=== PATIENT | male | born 1970 | race Caucasian/White ===

== ENCOUNTER 2022-07-03 21:57 | Observation (INO) ==
[2022-07-03] MEDS ORDERED: THIAMINE HCL 100 MG, FOLIC ACID 1 MG in SODIUM CHLORIDE 0.9% 1000ML 1,000 ML IV STA (23:05)
[2022-07-03] MEDS ORDERED: LIDOCAINE/EPINEPH/TETRACAINE 1 EA SYR EXT STA (23:05)
[2022-07-03] MEDS ORDERED: LORazepam 2 MG/1 ML VIAL IV STA (23:05)
[2022-07-03] MEDS ORDERED: CEROVITE ADV FORMULA TAB PO STA (23:05)
[2022-07-03 23:36] LABS: Basophils # (auto) 0.03 K/uL (0-0.2); Basophils % (auto) 0.6 %; Eosinophils # (auto) 0.03 K/uL (0-0.50); Eosinophils % (auto) 0.6 %; Hematocrit (blood only) 37.1 % (42.0-52.0); Hemoglobin 12.8 g/dl (14.0-18.0); Immature Granulocytes # (auto) 0.01 K/uL (0.01-0.20); Immature Granulocytes % (auto) 0.2 %; Lymphocytes # (auto) 1.39 K/uL (1.2-3.4); Lymphocytes % (auto) 28.2 %; Mean Corpuscular Hemoglobin 35.4 pg (25.0-34.0); Mean Corpuscular Hgb Conc 34.5 g/dL (32.0-36.0); Mean Corpuscular Volume 102.5 fL (80.0-100.0); Mean Platelet Volume 10.8 fL (9.4-12.4); Monocytes # (auto) 0.58 K/uL (0.11-0.59); Monocytes % (auto) 11.8 %; Neutrophils # (auto) 2.89 K/uL (1.40-6.50); Neutrophils % (auto) 58.6 %; Platelet Count 156 K/uL (130-400); RDW Coefficient of Variation 11.9 % (11.5-14.5); RDW Standard Deviation 44.7 fL (36.4-46.3); Red Blood Count 3.62 M/uL (4.70-6.10); White Blood Count 4.93 K/ul (4.8-10.8)
--- NOTE | 2022-07-03 23:41 | Emergency Department Note ---
Impression & Plan Generalized seizure, Complex laceration of forehead, Alcohol withdrawal, CHI (closed head injury) ED Provider Note CHIEF COMPLAINT: Seizure HISTORY OF PRESENT ILLNESS: This 51-year-old male patient with past medical history of alcohol dependency and seizure presents to the emergency department with complaints of your episode today at work. 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 Patient sustained a frontal head injury. EMS was called and the patient was brought to the hospital by ambulance. Patient states he drinks about 1 case of truly seltzers a day. He denies any hard alcohol or beer. He denies any recent illnesses. Patient states he has been prescribed a seizure medication which he does not take religiously. He follows at the [facility] and does not see a neurologist. He is unsure how many seizure episodes he has had in the past. REVIEW OF SYSTEMS: A review of systems was performed with positives and pertinent negatives listed in the history of present illness. 10 systems were reviewed and are otherwise negative. ALLERGIES: see below MEDICATIONS: see below PMH: see below SOCIAL HISTORY: see below DDx: Primary seizure disorder, electrolyte abnormality, medication effect, alcohol withdrawal, intracranial hemorrhage, intracranial mass, trauma amongst other PHYSICAL EXAM: Vital signs reviewed. General: Well-appearing 51-year-old male, in no significant distress. Boarded and collared. HEENT: No scleral icterus, PERRLA, neck supple. Stellate 5 cm left forehead laceration just above the eyebrow. No other trauma noted. Cardiovascular: Regular rate and rhythm, no extra sounds. Pulmonary: Clear to auscultation bilaterally, normal work of breathing. Abdomen: Soft, nontender, nondistended, positive bowel sounds. Musculoskeletal: Atraumatic, no peripheral edema. Neurologic: Patient awake alert and oriented x 3, speech is clear Skin: Warm, dry, no rash EMERGENCY DEPARTMENT COURSE/MDM: This patient was evaluated and appeared to be in no significant distress. Patient was anxious and urinary. He is noted to be hypertensive and slightly tachycardic. Patient was taken off of the backboard with the assistance of 2 nurses. IV access was obtained and laboratory work was drawn. Patient was placed on the warehouse incentive selector with seizure precautions maintained. After further discussion with the patient, he has had multiple sei zures in the past. He is not consistent with taking the Keppra that was previously prescribed. Patient does drink daily and I am suspicious for alcohol withdrawal seizures. Patient was hydrated with NSS, given 2 mg of ativan IV. IV Keppra was administered. CT imaging of the head is negative for acute intracranial abnl. Forehead laceration was approximated as below. Case was d/w the hospitalist service for further management. PROCEDURE:Location: forehead Total length: 5 cm Complexity: complex, stellate and facial Verbal consent was obtained after the risks and benefits were explained, including but not limited to bleeding, scarring, infection, pain, and bone/joint/nerve damage. At this time, the risks of the procedure are less than the risks of NOT performing the procedure. A time out was taken and the correct patient and site identified. The skin was prepped with betadine. The target area was anesthetized with LET gel. Copious irrigation was performed using saline. The skin was re-prepped with betadine and a sterile field set. The wound was explored for foreign bodies and none found. Examination revealed no injury to deep structures such as tendons, bone, or significant blood vessels. Debridement was not performed. The wound edges were approximated using 9, 6-0 simple interrupted nylon sutures. Hemostasis and excellent approximation was achieved. Antibacterial ointment and a sterile dressing applied. Detailed wound care instructions and signs and symptoms of infection reviewed with the patient. No complications and the patient tolerated the procedure well. MONITORING: An order for cardiac monitoring was placed and the patient is noted to be in a normal sinus rhythm 98 beats per minute. RADIOLOGY: CT scan of the head to my review is negative for acute intracranial abnormality. otherwise defer to radiology. EKG:to my interpretation reveals a NSR at 96 bpm, prolonged QT with QTc 490, T wave abnl in inferior and lateral leads. no PVC, no PAC. When compared to previous dated 05/31/22, T wave abnl in inferior and lateral leads are new. DISPOSITION: Admit Past Med/Surg History Medical History Abdominal pain C. difficile colitis Nausea vomiting and diarrhea Seizure Surgical History History of esophagogastroduodenoscopy (EGD) (03/2015) Social History Smoking Status: Never smoker Second Hand Exposure: No; Do You Dip or Chew Tobacco: No; Hx Alcohol Use: Yes Alcohol type: other Hx Substance Use: No Preferred Language: Albanian Communication Ability: Effective Water Server Required: No Beliefs That Will Affect Care: None Current Living Situation: Alone Feels Safe at Home: Yes Assistive Devices: None Allergies Allergies Allergy/AdvReac Type Severity Reaction Status Date / Time No Known Allergies Allergy Verified 01/11/20 03:19 Home Meds Previous Rx's Medication Instructions Recorded levetiracetam 500 mg tablet 500 mg PO BID #60 tabs 05/31/22 (Keppra) Results & Data (ED) Vital Signs Vital Signs - 24 hr 07/03/22 22:00 07/03/22 22:34 07/03/22 22:30 Temperature 36.9 C Temperature Source Oral Pulse Rate 103 H 98 H 101 H Pulse Rate from SpO2 Sensor 99 H Pulse Rhythm Regular Pulse Strength Normal Respiratory Rate 22 21 Respiratory Effort / Characteristics Non-Labored Spontaneous Respiratory Pattern Regular Blood Pressure 161/97 H 182/100 H Blood Pressure Mean 118 127 Blood Pressure Position Lying Pulse Oximetry 94 92 Oxygen Delivery Method Room Air Room Air Sepsis Recent Fever Within 48 Hours No Sepsis New/Unexplained Change in Mental Status N/A Sepsis Action Taken by Nursing No Action Required Home Medications Current Medication List: was personally reviewed by me Laboratory Data Attestation: I reviewed the patient's lab results. 07/03/22 22:19 07/03/22 22:19 Lab Results 07/03/22 07/03/22 07/04/22 Range/Units 22:19 22:19 01:13 WBC 4.93 (4.8-10.8) K/ul RBC 3.62 L (4.70-6.10) M/uL Hgb 12.8 L (14.0-18.0) g/dl Hct 37.1 L (42.0-52.0) % MCV 102.5 H (80.0-100.0) fL MCH 35.4 H (25.0-34.0) pg MCHC 34.5 (32.0-36.0) g/dL RDW Std Deviation 44.7 (36.4-46.3) fL RDW Coeff of Jan 11.9 (11.5-14.5) % Plt Count 156 (130-400) K/uL MPV 10.8 (9.4-12.4) fL Immature Gran % (Auto) 0.2 % Neut % (Auto) 58.6 % Lymph % (Auto) 28.2 % Whitfield % (Auto) 11.8 % Eos % (Auto) 0.6 % Baso % (Auto) 0.6 % Neut # (Auto) 2.89 (1.40-6.50) K/uL Lymph # (Auto) 1.39 (1.2-3.4) K/uL Whitfield # (Auto) 0.58 (0.11-0.59) K/uL Eos # (Auto) 0.03 (0-0.50) K/uL Baso # (Auto) 0.03 (0-0.2) K/uL Immature Gran # (Auto) 0.01 (0.01-0.20) K/uL Sodium 138 (136-145) mmol/L Potassium 3.3 L (3.5-5.1) mmol/L Chloride 96 L (98-107) mmol/L Carbon Dioxide 20 L (21-32) mmol/L Anion Gap 22 H (3-11) BUN 13 (6-23) mg/dl Creatinine 0.95 (0.6-1.4) mg/dl Est Cr Clr Drug Dosing 98.1 ml/min Est GFR ( Amer) 106.2 ml/min Est GFR (Non-Af Amer) 91.7 ml/min BUN/Creatinine Ratio 13.7 (10-20) Glucose 171 H (70-99(Fasting)) mg/dl Lactate (0.4-2.0) mmol/L Calcium 9.0 (8.6-10.3) mg/dl Magnesium 1.4 L (1.7-2.4) mg/dl Total Bilirubin 0.6 (0.2-1.0) mg/dl AST 35 (13-39) U/L ALT 31 (7-52) U/L Alkaline Phosphatase 38 (34-104) U/L Total Protein 7.7 (6.0-8.3) gm/dl Albumin 4.3 (3.4-5.0) gm/dl Globulin 3.4 (2.5-4.0) gm/dl Albumin/Globulin Ratio 1.3 (0.9-2) Urine Color Urine Appearance (Clear) Urine pH (4.5-7.5) Ur Specific Hudson (1.000-1.030) Urine Protein (Negative) Urine Glucose (UA) (Negative) Urine Ketones (Negative) Urine Blood (Negative) Urine Nitrite (Negative) Urine Bilirubin (Negative) Urine Urobilinogen (Negative) Ur Leukocyte Esterase (Negative) Urine WBC (Auto) (0-5) /hpf Urine RBC (Auto) (0-4) /hpf U Hyaline Cast (Auto) (0-5) /lpf U Epithel Cells (Auto) (0-5) /lpf Urine Bacteria (Auto) (Negative) Urine Opiates Screen (Neg) Ur Methadone, Qual (Neg) Urine Barbiturates (Neg) Ur Phencyclidine (PCP) (Neg) U Amphetamin/Meth Scrn (Neg) MDMA (Ecstasy) Screen (Neg) U Benzodiazepines Scrn (Neg) Ur Cocaine Metabolite (Neg) U Marijuana (THC) Screen (Neg) Ethyl Alcohol mg/dL < 10.0 (<10.0) mg/dl SARS-CoV-2, RNA, NAAT (NEGATIVE) 07/04/22 07/04/22 07/04/22 Range/Units 01:13 01:58 01:58 WBC (4.8-10.8) K/ul RBC (4.70-6.10) M/uL Hgb (14.0-18.0) g/dl Hct (42.0-52.0) % MCV (80.0-100.0) fL MCH (25.0-34.0) pg MCHC (32.0-36.0) g/dL RDW Std Deviation (36.4-46.3) fL RDW Coeff of Jan (11.5-14.5) % Plt Count (130-400) K/uL MPV (9.4-12.4) fL Immature Gran % (Auto) % Neut % (Auto) % Lymph % (Auto) % Whitfield % (Auto) % Eos % (Auto) % Baso % (Auto) % Neut # (Auto) (1.40-6.50) K/uL Lymph # (Auto) (1.2-3.4) K/uL Whitfield # (Auto) (0.11-0.59) K/uL Eos # (Auto) (0-0.50) K/uL Baso # (Auto) (0-0.2) K/uL Immature Gran # (Auto) (0.01-0.20) K/uL Sodium (136-145) mmol/L Potassium (3.5-5.1) mmol/L Chloride (98-107) mmol/L Carbon Dioxide (21-32) mmol/L Anion Gap (3-11) BUN (6-23) mg/dl Creatinine (0.6-1.4) mg/dl Est Cr Clr Drug Dosing ml/min Est GFR ( Amer) ml/min Est GFR (Non-Af Amer) ml/min BUN/Creatinine Ratio (10-20) Glucose (70-99(Fasting)) mg/dl Lactate 1.7 (0.4-2.0) mmol/L Calcium (8.6-10.3) mg/dl Magnesium (1.7-2.4) mg/dl Total Bilirubin (0.2-1.0) mg/dl AST (13-39) U/L ALT (7-52) U/L Alkaline Phosphatase (34-104) U/L Total Protein (6.0-8.3) gm/dl Albumin (3.4-5.0) gm/dl Globulin (2.5-4.0) gm/dl Albumin/Globulin Ratio (0.9-2) Urine Color Yellow Urine Appearance Clear (Clear) Urine pH 8.0 H (4.5-7.5) Ur Specific Hudson 1.018 (1.000-1.030) Urine Protein 1+ H (Negative) Urine Glucose (UA) Negative (Negative) Urine Ketones 2+ H (Negative) Urine Blood Negative (Negative) Urine Nitrite Negative (Negative) Urine Bilirubin Negative (Negative) Urine Urobilinogen Negative (Negative) Ur Leukocyte Esterase Negative (Negative) Urine WBC (Auto) 1-5 (0-5) /hpf Urine RBC (Auto) 0-4 (0-4) /hpf U Hyaline Cast (Auto) 0 (0-5) /lpf U Epithel Cells (Auto) 20-30 H (0-5) /lpf Urine Bacteria (Auto) Negative (Negative) Urine Opiates Screen (Neg) Ur Methadone, Qual (Neg) Urine Barbiturates (Neg) Ur Phencyclidine (PCP) (Neg) U Amphetamin/Meth Scrn (Neg) MDMA (Ecstasy) Screen (Neg) U Benzodiazepines Scrn (Neg) Ur Cocaine Metabolite (Neg) U Marijuana (THC) Screen (Neg) Ethyl Alcohol mg/dL (<10.0) mg/dl SARS-CoV-2, RNA, NAAT NEGATIVE (NEGATIVE) 07/04/22 Range/Units 01:58 WBC (4.8-10.8) K/ul RBC (4.70-6.10) M/uL Hgb (14.0-18.0) g/dl Hct (42.0-52.0) % MCV (80.0-100.0) fL MCH (25.0-34.0) pg MCHC (32.0-36.0) g/dL RDW Std Deviation (36.4-46.3) fL RDW Coeff of Jan (11.5-14.5) % Plt Count (130-400) K/uL MPV (9.4-12.4) fL Immature Gran % (Auto) % Neut % (Auto) % Lymph % (Auto) % Whitfield % (Auto) % Eos % (Auto) % Baso % (Auto) % Neut # (Auto) (1.40-6.50) K/uL Lymph # (Auto) (1.2-3.4) K/uL Whitfield # (Auto) (0.11-0.59) K/uL Eos # (Auto) (0-0.50) K/uL Baso # (Auto) (0-0.2) K/uL Immature Gran # (Auto) (0.01-0.20) K/uL Sodium (136-145) mmol/L Potassium (3.5-5.1) mmol/L Chloride (98-107) mmol/L Carbon Dioxide (21-32) mmol/L Anion Gap (3-11) BUN (6-23) mg/dl Creatinine (0.6-1.4) mg/dl Est Cr Clr Drug Dosing ml/min Est GFR ( Amer) ml/min Est GFR (Non-Af Amer) ml/min BUN/Creatinine Ratio (10-20) Glucose (70-99(Fasting)) mg/dl Lactate (0.4-2.0) mmol/L Calcium (8.6-10.3) mg/dl Magnesium (1.7-2.4) mg/dl Total Bilirubin (0.2-1.0) mg/dl AST (13-39) U/L ALT (7-52) U/L Alkaline Phosphatase (34-104) U/L Total Protein (6.0-8.3) gm/dl Albumin (3.4-5.0) gm/dl Globulin (2.5-4.0) gm/dl Albumin/Globulin Ratio (0.9-2) Urine Color Urine Appearance (Clear) Urine pH (4.5-7.5) Ur Specific Hudson (1.000-1.030) Urine Protein (Negative) Urine Glucose (UA) (Negative) Urine Ketones (Negative) Urine Blood (Negative) Urine Nitrite (Negative) Urine Bilirubin (Negative) Urine Urobilinogen (Negative) Ur Leukocyte Esterase (Negative) Urine WBC (Auto) (0-5) /hpf Urine RBC (Auto) (0-4) /hpf U Hyaline Cast (Auto) (0-5) /lpf U Epithel Cells (Auto) (0-5) /lpf Urine Bacteria (Auto) (Negative) Urine Opiates Screen Neg (Neg) Ur Methadone, Qual Neg (Neg) Urine Barbiturates Neg (Neg) Ur Phencyclidine (PCP) Neg (Neg) U Amphetamin/Meth Scrn Neg (Neg) MDMA (Ecstasy) Screen Neg (Neg) U Benzodiazepines Scrn Neg (Neg) Ur Cocaine Metabolite Neg (Neg) U Marijuana (THC) Screen Neg (Neg) Ethyl Alcohol mg/dL (<10.0) mg/dl SARS-CoV-2, RNA, NAAT (NEGATIVE) Administered Medications Acetaminophen (Acetaminophen 325 Mg Tab) 650 mg PO Q4H PRN PRN Reason: Pain or Fever Stop: 08/03/22 05:47 Last Admin: 07/04/22 23:19 Dose: 650 mg Documented By: KAYLEIGH Folic Acid (Folic Acid 1 Mg Tab) 1 mg PO QAM [facility] Stop: 08/04/22 08:59 Last Admin: 07/05/22 08:28 Dose: 1 mg Documented By: ClareO Gabapentin (Gabapentin 600 Mg Tab) 600 mg PO Q12H [facility] Stop: 07/06/22 16:01 Last Admin: 07/06/22 04:04 Dose: 600 mg Documented By: ESG Levetiracetam (Levetiracetam 500 Mg Tab) 1,000 mg PO BID VANNESSA Stop: 08/03/22 20:59 Last Admin: 07/05/22 20:23 Dose: 1,000 mg Documented By: Admin: 07/05/22 08:26 Dose: 1,000 mg Documented By: Admin: 07/04/22 20:55 Dose: 1,000 mg Documented By: MOSESG Melatonin (Melatonin 3 Mg Tab) 3 mg PO HS PRN PRN Reason: Sleep Stop: 08/03/22 22:52 Last Admin: 07/04/22 23:18 Dose: 3 mg Documented By: KAYLEIGH Multivitamins (Multivitamin Tab) 1 tab PO QAM VANNESSA Stop: 08/04/22 08:59 Last Admin: 07/05/22 08:28 Dose: 1 tab Documented By: HANG Thiamine HCl (Thiamine Hcl 100 Mg Tab) 100 mg PO QAM VANNESSA Stop: 08/04/22 08:59 Last Admin: 07/05/22 09:10 Dose: 100 mg Documented By: HANG Discontinued Medications Clonidine HCl (Clonidine Hcl 0.1 Mg Tab) 0.1 mg PO NOW STA Stop: 07/04/22 04:34 Last Admin: 07/04/22 04:41 Dose: 0.1 mg Documented By: CARMEN Gabapentin (Gabapentin 600 Mg Tab) 1,200 mg PO NOW STA Stop: 07/04/22 02:44 Last Admin: 07/04/22 03:36 Dose: 1,200 mg Documented By: CARMEN Gabapentin (Gabapentin 600 Mg Tab) 600 mg PO Q8H VANNESSA Stop: 07/05/22 16:01 Last Admin: 07/05/22 16:50 Dose: 600 mg Documented By: Admin: 07/05/22 08:28 Dose: 600 mg Documented By: OClare Admin: 07/04/22 23:16 Dose: 600 mg Documented By: KAYLEIGH Gabapentin (Gabapentin 600 Mg Tab) 600 mg PO Q6H VANNESSA Stop: 07/04/22 16:01 Last Admin: 07/04/22 15:33 Dose: 600 mg Documented By: INFO PRINT PRESS OPERATOR Admin: 07/04/22 09:36 Dose: 600 mg Documented By: LAXMI Gadobutrol (Gadobutrol 65ml Vial) 9 ml IV ONCE ONE Stop: 07/04/22 20:09 Last Admin: 07/04/22 20:08 Dose: 9 ml Documented By: JULIANNE Thiamine HCl 100 mg/ Folic (Acid 1 mg/ Sodium Chloride) 1,001.2 mls @ 500 mls/hr IV .Q2H1M STA; Protocol Stop: 07/04/22 01:05 Last Infusion: 07/04/22 02:43 Dose: 0 mls/hr Documented By: Infusion: 07/04/22 01:15 Dose: 500 mls/hr Documented By: Infusion: 07/04/22 00:31 Dose: 0 mls/hr Documented By: Admin: 07/03/22 23:49 Dose: 500 mls/hr Documented By: NORI Levetiracetam 2,000 mg/ Sodium (Chloride) 270 mls @ 999 mls/hr IV NOW STA Stop: 07/04/22 00:00 Last Infusion: 07/04/22 01:15 Dose: 0 mls/hr Documented By: Admin: 07/04/22 00:32 Dose: 999 mls/hr Documented By: NORI Magnesium Sulfate/Dextrose (Magnesium Sulfate / D5w) 1 gm in 100 mls @ 200 mls/hr IV Q30M [facility] Stop: 07/04/22 02:13 Last Infusion: 07/04/22 02:24 Dose: 0 mls/hr Documented By: Admin: 07/04/22 01:37 Dose: 200 mls/hr Documented By: Infusion: 07/04/22 01:37 Dose: 200 mls/hr Documented By: Admin: 07/04/22 01:23 Dose: 200 mls/hr Documented By: NORI Potassium Chloride/Sodium Chloride (Normal Saline W/20 Meq Kcl) 20 meq in 1,000 mls @ 50 mls/hr IV .Q20H STA; Protocol Stop: 07/04/22 22:24 Last Infusion: 07/05/22 03:48 Dose: 0 mls/hr Documented By: Infusion: 07/05/22 02:25 Dose: 0 mls/hr Documented By: Infusion: 07/04/22 20:40 Dose: 50 mls/hr Documented By: Infusion: 07/04/22 19:30 Dose: 0 mls/hr Documented By: Admin: 07/04/22 03:37 Dose: 50 mls/hr Documented By: CARMEN Lidocaine (Lidocaine/Epineph/Tetracaine 1 Ea Syr) 1 each EXT NOW STA Stop: 07/03/22 23:06 Last Admin: 07/04/22 00:18 Dose: 1 each Documented By: ERNST Lorazepam (Lorazepam 2 Mg/1 Ml Vial) 2 mg IV NOW STA Stop: 07/03/22 23:06 Last Admin: 07/03/22 23:16 Dose: 2 mg Documented By: NORI Lorazepam (Lorazepam 2 Mg/1 Ml Vial) 1 mg IV NOW STA Stop: 07/04/22 01:41 Last Admin: 07/04/22 02:15 Dose: 1 mg Documented By: LARS Multivitamins/Minerals (Cerovite Adv Formula Tab) 1 tab PO ONE STA Stop: 07/03/22 23:06 Last Admin: 07/03/22 23:16 Dose: 1 tab Documented By: NORI Potassium Chloride (Potassium Chloride Pwd 20 Meq Pack) 40 meq PO NOW STA Stop: 07/04/22 02:44 Last Admin: 07/04/22 04:13 Dose: 40 meq Documented By: CARMEN Potassium Chloride (Potassium Chloride Crtab 20 Meq Tabcr) 40 meq PO ONE ONE Stop: 07/04/22 12:07 Last Admin: 07/04/22 12:12 Dose: 40 meq Documented By: LAXMI Imaging Data Radiologist's Impression: Head CT 07/03/22 23:05 Exam(s): CT HEAD Without Contrast EXAM: CT Head Without Intravenous Contrast CLINICAL HISTORY: Reason for exam: seizure CHI. TECHNIQUE: Axial computed tomography images of the head/brain without intravenous contrast. CTDI is 37.62 mGy and DLP is 614.27 mGy-cm. Automated exposure control was utilized for the study. A dose lowering technique was utilized adhering to the principles of ALARA. COMPARISON: No relevant prior studies available. FINDINGS: No acute intracranial hemorrhage. No midline shift or mass effect. The territorial aparicio-white matter differentiation is maintained throughout. The ventricles and sulci are commensurate with age. The visualized orbits appear grossly unremarkable. The calvarium is intact. Forehead laceration. The visualized paranasal sinuses and mastoid air cells are grossly clear. IMPRESSION: No acute intracranial hemorrhage, midline shift, or mass effect. Forehead laceration. Electronically signed by: Ruddy Shields MD 07/04/22 00:14 AM Head Trauma GCS Score: 15 Discharge Plan Visit Data Chief Complaint: Seizure ED Provider: Sarah Staples Discharge Problem: Generalized seizure, Complex laceration of forehead, Alcohol withdrawal, CHI (closed head injury) Patient Disposition: Admitted As Inpatient Discharge Instructions Interventions: ED Discharge Assessment Last Done: 07/04/22 15:50
[2022-07-03 23:52] LABS: Albumin Globulin Ratio 1.3 (0.9-2); Albumin Level 4.3 gm/dl (3.4-5.0); BUN Creatinine Ratio 13.7 (10-20); Bilirubin,Total 0.6 mg/dl (0.2-1.0); Creatinine Clr Calc Pharmacy 98.1 ml/min; Est GFR (African American) 106.2 ml/min; Est GFR (Non-African American) 91.7 ml/min; Globulin 3.4 gm/dl (2.5-4.0); Magnesium 1.4 mg/dl (1.7-2.4); Potassium 3.3 mmol/L (3.5-5.1); Total Protein 7.7 gm/dl (6.0-8.3)
--- NOTE | 2022-07-04 00:15 | CT Scan Report ---
Exam(s): CT HEAD Without Contrast EXAM: CT Head Without Intravenous Contrast CLINICAL HISTORY: Reason for exam: seizure CHI. TECHNIQUE: Axial computed tomography images of the head/brain without intravenous contrast. CTDI is 37.62 mGy and DLP is 614.27 mGy-cm. Automated exposure control was utilized for the study. A dose lowering technique was utilized adhering to the principles of ALARA. COMPARISON: No relevant prior studies available. FINDINGS: No acute intracranial hemorrhage. No midline shift or mass effect. The territorial aparicio-white matter differentiation is maintained throughout. The ventricles and sulci are commensurate with age. The visualized orbits appear grossly unremarkable. The calvarium is intact. Forehead laceration. The visualized paranasal sinuses and mastoid air cells are grossly clear. IMPRESSION: No acute intracranial hemorrhage, midline shift, or mass effect. Forehead laceration. Electronically signed by: Ruddy Shields MD 07/04/22 00:14 AM
[2022-07-04] MEDS: MAGNESIUM SULFATE / D5W 1 GM/100 ML BAG IV SCH ×2 (01:23→01:37)
[2022-07-04] MEDS ORDERED: LORazepam 2 MG/1 ML VIAL IV STA (01:40)
[2022-07-04 02:24] LABS: Appearance Urine Clear (Clear); Bacteria Urine Automated Negative (Negative); Bilirubin Urine Negative (Negative); Blood Urine Negative (Negative); Cast Urine Automated 0 /lpf (0-5); Color Urine Yellow; Epithelial Cell Urine Auto 20-30 /lpf (0-5); Glucose Urine UA Negative (Negative); Ketones Urine 2+ (Negative); Leukocyte Esterase Urine Negative (Negative); Nitrite Urine Negative (Negative); RBC Urine Automated 0-4 /hpf (0-4); Specific Gravity Urine 1.018 (1.000-1.030); Urobilinogen Urine Negative (Negative)
[2022-07-04] MEDS ORDERED: NSS + 20MEQ KCL 20 MEQ/1,000 ML BAG IV STA (02:25)
[2022-07-04 02:27] LABS: Protein Urine 1+ (Negative)
[2022-07-04] MEDS ORDERED: GABAPENTIN 600 MG TAB PO STA (02:43)
[2022-07-04] MEDS ORDERED: POTASSIUM CHLORIDE PWD 20 MEQ PACK PO STA (02:43)
[2022-07-04 02:51] LABS: Amphetamines+Metham, Urine Neg (Neg); Barbiturates, Urine Neg (Neg); Benzodiazepine, Urine Neg (Neg); Cocaine, Urine Neg (Neg); MDMA (Ecstacy), Urine Neg (Neg); Methadone, Urine Neg (Neg); Opiate, Urine Neg (Neg); Phencyclidine, Urine Neg (Neg)
--- NOTE | 2022-07-04 04:32 | History & Physical Report ---
Date of Service July 04, 2022 Assessment & Plan (1) Breakthrough seizure: Plan: Likely alcohol withdrawal seizures chronic diastolic heart failure, patient on the dry side Hypokalemia, hypomagnesemia Hyperglycemia rule out DM PCU Seizure precautions Increase Keppra dose to 1 g twice daily for now Neurology consult Re: Breakthrough seizures [place] S, DT precautions replace electrolytes Check hemoglobin A1c DVT prophylaxis. SCDs Re: Traumatic frontal laceration Full code Text document was generated using [employer] voice recognition software. It may contain grammatical or spelling errors. Kindly contact undersigned for clarification of any documentation item in question. History of Present Illness Chief Complaint: Seizure as per records Primary Care Provider: Dr. Hernandez History obtained from patient and records. Medical history significant for chronic diastolic heart failure, seizure disorder, alcohol abuse. Last confinement 2014 for C. difficile colitis. Patient has had seizures since 2019 attributed to alcohol use cessation and low magnesium and potassium. Patient started on Keppra. First and last visit to [facility] neurologist was January 2020. Normal outpatient EEG January 2020. No acute intracranial abnormality on outpatient MRI February 2020. Patient seen at the ER once ago for breakthrough seizure. 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 Subsequent head trauma/frontal laceration secondary to fall. Patient denies chest pain, SOB. Compliant with medications. Last EtOH intake was 2 days ago. Patient brought to the ER for evaluation. IV Keppra administered at the ER. Frontal laceration sutured. Medical History as above Surgical History : None Family History : Alcoholism Personal/Social history : Non-smoker, alcohol abuse, contract officer Allergies Allergy/AdvReac Type Severity Reaction Status Date / Time No Known Allergies Allergy Verified 01/11/20 03:19 Home Medications Medication Instructions Recorded Confirmed Type levetiracetam 500 mg tablet 500 mg PO BID #60 tabs 05/31/22 07/03/22 Rx (Keppra) Past Med/Surg History Medical History Abdominal pain C. difficile colitis Nausea vomiting and diarrhea Seizure Surgical History History of esophagogastroduodenoscopy (EGD) (03/2015) Social History Smoking Status: Never smoker Feels Safe at Home: Yes Review of Systems Review of Systems: As per HPI, all other systems reviewed and negative Physical Exam Physical Exam: GENERAL: Slightly uncomfortable, pleasant, tremulous, no respiratory distress SKIN: Normal color, warm HEENT: Alopecia, marva over frontal laceration with dried blood, pink palpebral conjunctivae, no ptosis, dry buccal mucosa NECK : Supple, no tenderness CHEST : CTA, no tenderness HEART : RRR, no obvious murmurs ABDOMEN: Some distention, nontender EXTREMITIES : No LE swelling/tenderness, no other conspicuous deformities noted NEUROLOGIC : Coherent, no facial asymmetry, tremulous, no other gross focality Results & Data Results & Data Vital Signs (Past 12 Hours) Vital Signs Temp Pulse Resp BP Pulse Ox O2 Del Method 07/04/22 03:00 97 H 21 156/91 H 91 Room Air 07/04/22 02:30 96 H 20 150/80 H 93 07/04/22 02:30 150/80 H 07/04/22 02:00 112 H 22 104/86 95 07/04/22 02:21 97 H 07/04/22 01:37 98 H 19 175/98 H 94 07/04/22 01:00 173/90 H 07/04/22 00:30 95 H 19 167/90 H 93 07/04/22 00:00 88 22 166/97 H 96 07/03/22 23:45 87 20 171/100 H 98 07/03/22 23:01 91 H 22 135/112 H 96 07/03/22 22:30 101 H 21 182/100 H 92 Room Air 07/03/22 22:34 98 H 07/03/22 22:00 36.9 C 103 H 22 161/97 H 94 Room Air Laboratory Results Laboratory Results WBC 4.93 K/ul (4.8-10.8) 07/03/22 22:19 RBC 3.62 M/uL (4.70-6.10) L 07/03/22 22:19 Hgb 12.8 g/dl (14.0-18.0) L 07/03/22 22:19 Hct 37.1 % (42.0-52.0) L 07/03/22 22:19 MCV 102.5 fL (80.0-100.0) H 07/03/22 22:19 MCH 35.4 pg (25.0-34.0) H 07/03/22 22:19 MCHC 34.5 g/dL (32.0-36.0) 07/03/22 22:19 RDW Std Deviation 44.7 fL (36.4-46.3) 07/03/22 22: RDW Coeff of Jan 11.9 % (11.5-14.5) 07/03/22 22: Plt Count 156 K/uL (130-400) 07/03/22 22:19 MPV 10.8 fL (9.4-12.4) 07/03/22 22:19 Immature Gran % (Auto) 0.2 % 07/03/22 22: Neut % (Auto) 58.6 % 07/03/22 22:19 Lymph % (Auto) 28.2 % 07/03/22 22:19 [place] % (Auto) 11.8 % 07/03/22 22:19 Eos % (Auto) 0.6 % 07/03/22 22:19 Baso % (Auto) 0.6 % 07/03/22 22:19 Neut # (Auto) 2.89 K/uL (1.40-6.50) 07/03/22 22:19 Lymph # (Auto) 1.39 K/uL (1.2-3.4) 07/03/22 22:19 [place] # (Auto) 0.58 K/uL (0.11-0.59) 07/03/22 22:19 Eos # (Auto) 0.03 K/uL (0-0.50) 07/03/22 22:19 Baso # (Auto) 0.03 K/uL (0-0.2) 07/03/22 22:19 Immature Gran # (Auto) 0.01 K/uL (0.01-0.20) 07/03/22 22:19 Sodium 138 mmol/L (136-145) 07/03/22 22:19 Potassium 3.3 mmol/L (3.5-5.1) L 07/03/22 22:19 Chloride 96 mmol/L (98-107) L 07/03/22 22: Carbon Dioxide 20 mmol/L (21-32) L 07/03/22 22:19 Anion Gap 22 (3-11) H 07/03/22 22:19 BUN 13 mg/dl (6-23) 07/03/22 22:19 Creatinine 0.95 mg/dl (0.6-1.4) 07/03/22 22:19 Est Cr Clr Drug Dosing 98.1 ml/min 07/03/22 22:19 Est GFR ( Amer) 106.2 ml/min 07/03/22 22:19 Est GFR (Non-Af Amer) 91.7 ml/min 07/03/22 22:19 BUN/Creatinine Ratio 13.7 (10-20) 07/03/22 22:19 Glucose 171 mg/dl (70-99(Fasting)) H 07/03/22 22:19 Lactate 1.7 mmol/L (0.4-2.0) 07/04/22 01:13 Calcium 9.0 mg/dl (8.6-10.3) 07/03/22 22:19 Magnesium 1.4 mg/dl (1.7-2.4) L 07/03/22 22:19 Total Bilirubin 0.6 mg/dl (0.2-1.0) 07/03/22 22:19 AST 35 U/L (13-39) 07/03/22 22:19 ALT 31 U/L (7-52) 07/03/22 22:19 Alkaline Phosphatase 38 U/L (34-104) 07/03/22 22:19 Total Protein 7.7 gm/dl (6.0-8.3) 07/03/22 22:19 Albumin 4.3 gm/dl (3.4-5.0) 07/03/22 22:19 Globulin 3.4 gm/dl (2.5-4.0) 07/03/22 22:19 Albumin/Globulin Ratio 1.3 (0.9-2) 07/03/22 22:19 Urine Color Yellow 07/04/22 01:58 Urine Appearance Clear (Clear) 07/04/22 01:58 Urine pH 8.0 (4.5-7.5) H 07/04/22 01:58 Ur Specific [place] 1.018 (1.000-1.030) 07/04/22 01:58 Urine Protein 1+ (Negative) H 07/04/22 01:58 Urine Glucose (UA) Negative (Negative) 07/04/22 01:58 Urine Ketones 2+ (Negative) H 07/04/22 01:58 Urine Blood Negative (Negative) 07/04/22 01:58 Urine Nitrite Negative (Negative) 07/04/22 01:58 Urine Bilirubin Negative (Negative) 07/04/22 01:58 Urine Urobilinogen Negative (Negative) 07/04/22 01:58 Ur Leukocyte Esterase Negative (Negative) 07/04/22 01:58 Urine WBC (Auto) 1-5 /hpf (0-5) 07/04/22 01:58 Urine RBC (Auto) 0-4 /hpf (0-4) 07/04/22 01:58 U Hyaline Cast (Auto) 0 /lpf (0-5) 07/04/22 01:58 U Epithel Cells (Auto) 20-30 /lpf (0-5) H 07/04/22 01:58 Urine Bacteria (Auto) Negative (Negative) 07/04/22 01:58 Urine Opiates Screen Neg (Neg) 07/04/22 01:58 Ur Methadone, Qual Neg (Neg) 07/04/22 01:58 Urine Barbiturates Neg (Neg) 07/04/22 01:58 Ur Phencyclidine (PCP) Neg (Neg) 07/04/22 01:58 U Amphetamin/Meth Scrn Neg (Neg) 07/04/22 01:58 MDMA (Ecstasy) Screen Neg (Neg) 07/04/22 01:58 U Benzodiazepines Scrn Neg (Neg) 07/04/22 01:58 Ur Cocaine Metabolite Neg (Neg) 07/04/22 01:58 U Marijuana (THC) Screen Neg (Neg) 07/04/22 01:58 Ethyl Alcohol mg/dL < 10.0 mg/dl (<10.0) 07/04/22 01:13 SARS-CoV-2, RNA, NAAT NEGATIVE (NEGATIVE) 07/04/22 01:[address] 07/03/22 23:05 Exam(s): CT HEAD Without Contrast EXAM: CT Head Without Intravenous Contrast CLINICAL HISTORY: Reason for exam: seizure CHI. TECHNIQUE: Axial computed tomography images of the head/brain without intravenous contrast. CTDI is 37.62 mGy and DLP is 614.27 mGy-cm. Automated exposure control was utilized for the study. A dose lowering technique was utilized adhering to the principles of ALARA. COMPARISON: No relevant prior studies available. FINDINGS: No acute intracranial hemorrhage. No midline shift or mass effect. The territorial aparicio-white matter differentiation is maintained throughout. The ventricles and sulci are commensurate with age. The visualized orbits appear grossly unremarkable. The calvarium is intact. Forehead laceration. The visualized paranasal sinuses and mastoid air cells are grossly clear. IMPRESSION: No acute intracranial hemorrhage, midline shift, or mass effect. Forehead laceration. Electronically signed by: Ruddy Shields MD 07/04/22 00:14 AM Diagnostic Findings EKG as per my interpretation :Rate 95, NSR, normal axis, diffuse T wave flatten ing over limb leads
[2022-07-04] MEDS ORDERED: cloNIDine HCL 0.1 MG TAB PO STA (04:33)
[2022-07-04] MEDS ORDERED: LORazepam 2 MG/1 ML VIAL IV PRN ×4 (04:35)
[2022-07-04] MEDS ORDERED: PROMETHAZINE HCL 12.5 MG in SODIUM CHLORIDE 0.9% 50 ML IV PRN (04:35)
[2022-07-04] MEDS ORDERED: oxyCODONE HCL IR 5 MG TAB (IMMEDIATE RELEASE) PO PRN (04:35)
[2022-07-04] MEDS ORDERED: Ativan IV Alcohol Withdrawal--Active Protocol IV PRN (04:35)
[2022-07-04] MEDS ORDERED: GABAPENTIN 1200MG ALCOHOL WITHDRAWAL LOAD PO STA (04:35)
[2022-07-04] MEDS ORDERED: ACETAMINOPHEN 325 MG TAB PO PRN (05:48)
[2022-07-04 09:00] LABS: Basophils # (auto) 0.02 K/uL (0-0.2); Basophils % (auto) 0.5 %; Eosinophils # (auto) 0.09 K/uL (0-0.50); Hematocrit (blood only) 34.7 % (42.0-52.0); Immature Granulocytes # (auto) 0.01 K/uL (0.01-0.20); Immature Granulocytes % (auto) 0.2 %; Lymphocytes # (auto) 0.89 K/uL (1.2-3.4); Lymphocytes % (auto) 20.2 %; Mean Corpuscular Hemoglobin 34.9 pg (25.0-34.0); Mean Corpuscular Hgb Conc 34.6 g/dL (32.0-36.0); Mean Corpuscular Volume 100.9 fL (80.0-100.0); Mean Platelet Volume 10.2 fL (9.4-12.4); Monocytes # (auto) 0.61 K/uL (0.11-0.59); Monocytes % (auto) 13.9 %; Neutrophils # (auto) 2.78 K/uL (1.40-6.50); Neutrophils % (auto) 63.2 %; Platelet Count 146 K/uL (130-400); RDW Coefficient of Variation 11.5 % (11.5-14.5); RDW Standard Deviation 42.6 fL (36.4-46.3); Red Blood Count 3.44 M/uL (4.70-6.10)
[2022-07-04 09:05] LABS: BUN Creatinine Ratio 10.5 (10-20); Calcium 8.1 mg/dl (8.6-10.3); Creatinine Clr Calc Pharmacy 122.6 ml/min; Est GFR (African American) 121.6 ml/min; Est GFR (Non-African American) 104.9 ml/min; Magnesium 2.2 mg/dl (1.7-2.4); Potassium 3.3 mmol/L (3.5-5.1)
[2022-07-04] MEDS: GABAPENTIN 600 MG TAB PO SCH ×3 (09:36→23:16)
[2022-07-04 09:38] LABS: Estimated Average Glucose 120 mg/dl; Hemoglobin A1C 5.8 % (4.5-5.6)
--- NOTE | 2022-07-04 10:42 | Electrocardiogram Report ---
Test Reason : Blood Pressure : / mmHG Vent. Rate : 096 BPM Atrial Rate : 096 BPM P-R Int : 142 ms QRS Dur : 092 ms QT Int : 388 ms P-R-T Axes : 066 040 025 degrees QTc Int : 490 ms Normal sinus rhythm Nonspecific T wave abnormality Prolonged QT Abnormal ECG When compared with ECG of 31-MAY-2022 15:11, Nonspecific T wave abnormality now evident in Lateral leads Confirmed by Hugo Nguyen ([id number]) on 07/04/2022 10:42:06 AM Referred By: REFERRED SELF Confirmed By:Hugo Nguyen
--- NOTE | 2022-07-04 11:30 | Neurology Consultation ---
Date of Consultation July 04, 2022 Assessment & Plan (1) Breakthrough seizure: Plan 51-year-old male with probable seizure disorder although many (although not all) of his seizures have apparently occurred in the context of alcohol withdrawal, probable alcohol use disorder. He has been noncompliant with Keppra, typically not taking the evening dose of this medication. He has followed with an epilepsy specialist at [facility]. I note he has had an unremarkable EEG done locally with the local [facility] neurology group. Patient should continue with Keppra for seizure prevention going forward. I agree with increasing his dosage to 1 g twice daily for the time being. Furthermore, to improve outpatient compliance, an extended release version of levetiracetam is available, which would allow for once daily dosing. Consider consulting psychiatry for further evaluation and management of suspected alcohol use disorder. An additional EEG is not likely to change his management at this point in time. Given that he has had multiple breakthrough seizures over the past few years, I would recommend checking an MRI of the brain, with and without contrast, seizure protocol. Patient should continue to follow with [facility] neurology for ongoing management of his seizure disorder. History of Present Illness Reason for Consultation: seizure Requesting Physician: Dr. Garcia Attending Physician: Gabriele Krause MD History of Present Illness The patient is a 51-year-old male with a history of seizure disorder occurring in the context of alcohol dependency. 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 He had presented to the emergency department for his first ever seizure in December 2019 that was felt to be related to alcohol withdrawal at that time. He apparently had another seizure episode in January 2020 with a presentation t o the emergency department, but apparently not related to alcohol withdrawal. He did have an EEG completed in February 2020, interpreted by Dr. Johann Moreira, local [facility] neurology. The study was normal. The patient was also seen by an epilepsy specialist at [facility] at that time. It had been recommended that he take Keppra 500 mg twice daily as he had presented with more than 1 seizure episode and the second episode was not clearly provoked by alcohol consumption. He presented again to the emergency department May 31, 2022 after a seizure episode that apparently occurred while getting ready to leave for work. This most recent episode was reportedly associated with heavy alcohol consumption the previous day. It was recommended that he restart or continue with his Keppra at that time. He presented again to the emergency department last night with another convulsive episode. This particular episode occurred while at work, he is relatively amnestic and denies any particular warning sign before the event. He remembers being brought to the hospital. He did sustain a contusion to the front of the head. No tongue bite, no incontinence reported. He has had tongue bite in the past. He again endorsed heavy alcohol consumption, drinks about 1 case of hard seltzers at a time. Indicates that he last drank alcohol perhaps 1 to 2 days ago. He also endorses a history of chronic insomnia, had been on trazodone in the past, poorly tolerated due to priapism. There was an ED evaluation for this issue in 2019. He does admit that he does not take his Keppra consistently. He often misses the evening dosage of this medication. He is afebrile. He has been hypertensive, presenting with a blood pressure of 161/97. CBC reveals a mild anemia, no leukocytosis, and metabolic panel reveals a normal sodium, low potassium, normal BUN and creatinine, hyperglycemia, glucose of 171 yesterday, calcium was 9.0 yesterday, currently 8.1, magnesium 1.4 yesterday, currently 2.2, transaminases normal, urine drug screen negative, ethyl alcohol level less than 10.0, SARS-CoV-2 negative. I did independently reviewed the CT of the head completed yesterday, no hemorrhage or acute process, no hydrocephalus, no subdural collection, no evolving infarct. Patient served in [place] in the [employer], denies a history of documented head injury or blast exposure. No known family history of epilepsy. Allergies Allergy/AdvReac Type Severity Reaction Status Date / Time No Known Allergies Allergy Verified 01/11/20 03:19 Home Medications Medication Instructions Recorded Confirmed Type levetiracetam 500 mg tablet 500 mg PO BID #60 tabs 05/31/22 07/03/22 Rx (Keppra) Patient History Medical History Abdominal pain C. difficile colitis Nausea vomiting and diarrhea Seizure Surgical History History of esophagogastroduodenoscopy (EGD) (03/2015) Social History Smoking Status: Never smoker Feels Safe at Home: Yes Review of Systems Constitutional: no fever and no chills Eyes: no blind spots and no diplopia Ear, Nose, Mouth, Throat: no ear pain and no hearing loss Respiratory: no cough and no dyspnea Cardiovascular: no chest pain and no palpitations Gastrointestinal: no nausea and no vomiting Genitourinary: no dysuria Musculoskeletal: no neck pain and no myalgia Integumentary: no rash and no lesions Neurologic: as per Subjective / HPI; no localized weakness, no loss of sensation and no headache(s) Psychiatric: no depression and no anxiety Hematologic / Lymphatic: no easy bleeding and no easy bruising Exam (Neuro) Constitutional: well developed and well nourished; no acute distress Eyes: normal visual bartlett by confrontation, PERRL, normal accommodation and EOM intact bilaterally; no nystagmus Cardiovascular: Vessels: normal carotid upstroke; no carotid bruit Neurologic: Oriented to:: Person, Place and Time Memory: Short Term Intact and Remote Intact Attention: Span Intact and Concentration Intact Language: Naming Objects and Repeating Phrases Speech Fluency: negative Dysarthria Speech Aphasia: negative Aphasia Fund of Knowledge: Current Events, Past History and Vocabulary Cranial Nerves: Normal II (Visual bartlett full to confrontation, visual acuity normal), III, IV, (Pupils equal round reactive to light and accommodation, eye movements normal), V (Facial sensation intact), VII (There is no facial droop or weakness), VIII (Hearing intact), IX, X (Palate elevates to midline), XI (Shoulder shrug intact) and XII (Tongue protrudes to midline) Motor Strength: Normal Lower Extremities and Normal Upper Extremities; negative Pronator Drift Motor Tone: Normal Lower Extremities and Normal Upper Extremities Muscle Bulk/Involuntary Movements: No Involuntary Movements; negative Muscle Atrophy Sensation: Light Touch Intact, Pain/Temperature Intact, Vibration Intact and Proprioception Intact Coordination: Normal; negative Limited Balance, Dysdiadochokinesia, Finger-Nose Abnormal or Heel-Gaitan Abnormal Deep Tendon Reflexes: Rt Triceps: 2+, Lt Triceps: 2+, Rt Biceps: 2+, Lt Biceps: 2+, Rt Brachioradialis: 2+, Lt Brachioradialis: 2+, Rt Patellar: 2+, Lt Patellar: 2+, Rt Ankle: 2+ and Lt Ankle: 2+ Special Tests: negative Babinski Present Details: Gait and station cannot be tested, seizure precautions in place. Left forehead contusion noted. No tongue bite. Results & Data Vital Signs (Past 12 Hours) Vital Signs Pulse Pulse Resp BP BP Pulse Ox Pulse Ox 07/04/22 09:37 87 18 156/99 H 95 07/04/22 07:00 82 18 155/94 H 93 07/04/22 07:00 93 07/04/22 07:01 87 07/04/22 06:11 115 H 07/04/22 05:48 87 20 157/76 H 96 07/04/22 05:03 91 H 19 135/80 91 07/04/22 03:00 97 H 21 156/91 H 91 07/04/22 02:30 96 H 20 150/80 H 93 07/04/22 02:30 150/80 H 07/04/22 02:00 112 H 22 104/86 95 07/04/22 02:21 97 H 07/04/22 01:37 98 H 19 175/98 H 94 07/04/22 01:00 173/90 H 07/04/22 00:30 95 H 19 167/90 H 93 07/04/22 00:00 88 22 166/97 H 96 07/03/22 23:45 87 20 171/100 H 98 07/03/22 23:01 91 H 22 135/112 H 96 O2 Del Method O2 Del Method 07/04/22 09:37 Room Air 07/04/22 07:00 Room Air 07/04/22 07:00 Room Air 07/04/22 07:01 07/04/22 06:11 07/04/22 05:48 Room Air 07/04/22 05:03 Room Air 07/04/22 03:00 Room Air 07/04/22 02:30 07/04/22 02:30 07/04/22 02:00 07/04/22 02:21 07/04/22 01:37 07/04/22 01:00 07/04/22 00:30 07/04/22 00:00 07/03/22 23:45 07/03/22 23:01 Laboratory Results WBC 4.40, hemoglobin 12.0, hematocrit 34.7, MCV 100.9, platelet count 146, sodium 138, potassium 3.3, BUN 8, creatinine 0.76, glucose 90, hemoglobin A1c 5.8, calcium 8.1, magnesium 2.2, AST 35, ALT 31, TSH on May 31 was 3.977, urine tox screen negative, ethyl alcohol level less than 10.0, SARS-CoV-[address] of the head is as described in the HPI, I independently reviewed these images. Electrocardiogram reveals a normal sinus rhythm, nonspecific T wave abnormality, prolonged QT, 96 bpm. PG Care Time/CCT Total # of Minutes Spent Total Time Spent with Patient: 80 minutes spent with chart review, direct review of imaging, labs, medical tests, outpatient [facility] records, direct interview and examination of patient, and medical documentation. Coding Level of Care Code 11013 INT INP/OBS CARE MIN Diagnoses Breakthrough seizure G40.919
[2022-07-04] MEDS ORDERED: POTASSIUM CHLORIDE CRTAB 20 MEQ TABCR PO ONE (12:06)
--- NOTE | 2022-07-04 16:38 | Hospitalist Progress Note ---
Date of Service July 04, 2022 Assessment & Plan (1) Breakthrough seizure: Plan: Breakthrough seizure Likely multifactorial: Alcohol withdrawal, noncompliant with Keppra --CT head:No acute intracranial hemorrhage, midline shift, or mass effect. Continue Keppra 1 g twice daily Continue seizure precautions An outpatient EEG Follows with [facility] neurology as outpatient Appreciate neurology input Needs follow-up with neurology upon discharge Will obtain MRI brain as recommended by neurology Alcohol withdrawal Continue gabapentin protocol Continue thiamine, folic acid Currently not interested in rehab placement Hypokalemia Hypomagnesemia Replete electrolytes as needed Forehead laceration S/P sutures Continue wound care Prediabetes HbA1c 5.8 Chronic diastolic heart failure No signs of volume overload Monitor DVT Px: SCDs Re: Traumatic frontal laceration Code Status Full code Admission and Anticipated Discharge Date Admission Date: July 04, 2022 Subjective Patient is seen and examined at bedside Feels well today Offers no complaints Admits to being noncompliant with Keppra-sometimes forgets to take it Denies any chest pain, dyspnea, dizziness, nausea, abdominal pain No other complaints Review of Systems Review of Systems: All systems reviewed & are unremarkable except as noted in Subjective Physical Exam Physical Exam: Physical Exam: Vitals signs as noted above General Appearance:Moderately built and nourished, no apparent distress Head: normocephalic, +traumatic, +L forehead sutures Eyes: normal inspection, EOMI Neck: supple, Trachea midline Respiratory/Chest: Normal breath sounds, CTA, No accessory muscle use Cardiovascular: S1, S2, No murmur Abdomen/GI:Soft, Non tender, Bowel sounds present Extremities/Musculoskeletal:normal inspection, no edema Neurologic/Psych:AAOX3, grossly no focal neurological deficits Skin: normal color, warm Results & Data Results & Data Vital Signs (Past 12 Hours) Vital Signs Temp Pulse Pulse Resp BP Pulse Ox Pulse Ox 07/04/22 16:23 148/97 H 07/04/22 16:00 36.7 C 87 18 158/100 H 97 07/04/22 15:03 105 H 21 139/86 94 07/04/22 15:20 84 07/04/22 12:14 36.6 C 84 18 132/93 97 07/04/22 09:37 87 18 156/99 H 95 07/04/22 07:00 82 18 155/94 H 93 07/04/22 07:00 93 07/04/22 07:01 87 07/04/22 06:11 115 H 07/04/22 05:48 87 20 157/76 H 96 07/04/22 05:03 91 H 19 135/80 91 O2 Del Method O2 Del Method 07/04/22 16:23 07/04/22 16:00 Room Air 07/04/22 15:03 Room Air 07/04/22 15:20 07/04/22 12:14 Room Air 07/04/22 09:37 Room Air 07/04/22 07:00 Room Air 07/04/22 07:00 Room Air 07/04/22 07:01 07/04/22 06:11 07/04/22 05:48 Room Air 07/04/22 05:03 Room Air Laboratory Results Short CBC 07/03/22 07/04/22 Range/Units 22:19 08:15 WBC 4.93 4.40 L (4.8-10.8) K/ul Hgb 12.8 L 12.0 L (14.0-18.0) g/dl Hct 37.1 L 34.7 L (42.0-52.0) % Plt Count 156 146 (130-400) K/uL BMP 07/03/22 07/04/22 22:19 08:15 Sodium 138 138 Potassium 3.3 L 3.3 L Chloride 96 L 105 Carbon Dioxide 20 L 27 BUN 13 8 Creatinine 0.95 0.76 Glucose 171 H 90 Calcium 9.0 8.1 L Liver Function 07/03/22 Range/Units 22:19 Total Bilirubin 0.6 (0.2-1.0) mg/dl AST 35 (13-39) U/L ALT 31 (7-52) U/L Alkaline Phosphatase 38 (34-104) U/L Albumin 4.3 (3.4-5.0) gm/dl Urine 07/04/22 Range/Units 01:58 Urine Color Yellow Urine Appearance Clear (Clear) Urine pH 8.0 H (4.5-7.5) Ur Specific [place] 1.018 (1.000-1.030) Urine Protein 1+ H (Negative) Urine Glucose (UA) Negative (Negative)
[2022-07-04] MEDS ORDERED: GADOBUTROL 65ML VIAL IV ONE (20:08)
[2022-07-04] MEDS: levETIRAcetam 500 MG TAB PO SCH (20:55)
[2022-07-04] MEDS ORDERED: MELATONIN 3 MG TAB PO PRN (22:53)
[2022-07-05 07:09] LABS: Hematocrit (blood only) 34.8 % (42.0-52.0); Hemoglobin 12.1 g/dl (14.0-18.0); Mean Corpuscular Hgb Conc 34.8 g/dL (32.0-36.0); Mean Corpuscular Volume 100.6 fL (80.0-100.0); Mean Platelet Volume 9.8 fL (9.4-12.4); Platelet Count 127 K/uL (130-400); RDW Coefficient of Variation 11.4 % (11.5-14.5); RDW Standard Deviation 41.6 fL (36.4-46.3); Red Blood Count 3.46 M/uL (4.70-6.10); White Blood Count 2.97 K/ul (4.8-10.8)
[2022-07-05 07:27] LABS: BUN Creatinine Ratio 9.2 (10-20); Calcium 8.3 mg/dl (8.6-10.3); Creatinine Clr Calc Pharmacy 96.1 ml/min; Est GFR (Non-African American) 99.2 ml/min; Potassium 3.6 mmol/L (3.5-5.1)
--- NOTE | 2022-07-05 08:17 | Magnetic Resonance Report ---
Brain MRI WITH AND WITHOUT CONTRAST HISTORY: Seizure TECHNIQUE: Multiplanar multisequence MRI of the brain was performed both before and after the intrave nous administration of contrast. COMPARISON STUDY: Head CT 07/03/2022. FINDINGS: There are no areas of restricted diffusion to suggest acute infarction. The midline structu res are intact. The paranasal sinuses are clear. The mastoid air cells are clear. The ventricles and sulci are within normal limits for age. There is no mass, hematoma, midline shift. The major vascular flow-voids at the skull base are well maintained. Postcontrast sequences show no areas of abnormal e nhancement. The temporal lobes are symmetric. No evidence for aparicio matter heterotopia. There is mild mucosal thickening within the nasal sinuses. Mild motion artifact on the postcontrast sequences resul ts in suboptimal evaluation. IMPRESSION: No acute intracranial abnormality. ACT 112: Negative or not required by law. Electronically signed by: Wyatt Loja M.D. 07/05/2022 8:15 AM
[2022-07-05] MEDS: levETIRAcetam 500 MG TAB PO SCH ×2 (08:26→20:23)
[2022-07-05] MEDS: GABAPENTIN 600 MG TAB PO SCH ×2 (08:28→16:50)
[2022-07-05] MEDS: FOLIC ACID 1 MG TAB PO SCH (08:28)
[2022-07-05] MEDS: MULTIVITAMIN TAB PO SCH (08:28)
[2022-07-05] MEDS: THIAMINE HCL 100 MG TAB PO SCH (09:10)
--- NOTE | 2022-07-05 20:01 | Hospitalist Progress Note ---
Date of Service July 05, 2022 Assessment & Plan (1) Breakthrough seizure: Plan: Breakthrough seizure Likely multifactorial: Alcohol withdrawal, noncompliant with Keppra --CT head:No acute intracranial hemorrhage, midline shift, or mass effect. --MRI:No acute intracranial abnormality. Continue Keppra 1 g twice daily Continue seizure precautions Had outpatient EEG Follows with [facility] neurology as outpatient Appreciate neurology input Needs follow-up with neurology upon discharge Medication compliance counseled Alcohol withdrawal Continue gabapentin protocol Continue thiamine, folic acid Currently not interested in rehab placement Hypokalemia Hypomagnesemia Replete electrolytes as needed Forehead laceration S/P sutures Continue wound care Prediabetes HbA1c 5.8 Chronic diastolic heart failure No signs of volume overload Monitor DVT Px: SCDs Re: Traumatic frontal laceration Code Status Full code Admission and Anticipated Discharge Date Admission Date: July 04, 2022 Subjective Patient is seen and examined at bedside States feeling well this morning No seizure activity since hospitalization Denies any withdrawal symptoms from alcohol Also denies any chest pain, dyspnea, dizziness, nausea, abdominal pain Currently not interested in drug rehab placement Review of Systems Review of Systems: All systems reviewed & are unremarkable except as noted in Subjective Physical Exam Physical Exam: Physical Exam: Vitals signs as noted above General Appearance:Moderately built and nourished, no apparent distress Head: normocephalic, +traumatic, +L forehead sutures Eyes: normal inspection, EOMI Neck: supple, Trachea midline Respiratory/Chest: Normal breath sounds, CTA, No accessory muscle use Cardiovascular: S1, S2, No murmur Abdomen/GI:Soft, Non tender, Bowel sounds present Extremities/Musculoskeletal:normal inspection, no edema Neurologic/Psych:AAOX3, grossly no focal neurological deficits Skin: normal color, warm Results & Data Results & Data Vital Signs (Past 12 Hours) Vital Signs Temp Pulse Pulse Resp BP Pulse Ox O2 Del Method 07/05/22 19:47 36.7 C 75 18 154/89 H 95 Room Air 07/05/22 17:11 36.9 C 79 16 154/97 H 99 Room Air 07/05/22 15:09 79 07/05/22 12:47 36.6 C 84 26 H 164/100 H 99 Room Air 07/05/22 09:52 68 07/05/22 08:11 36.8 C 81 16 152/96 H 98 Room Air Laboratory Results Short CBC 07/05/22 Range/Units 06:54 WBC 2.97 L (4.8-10.8) K/ul Hgb 12.1 L (14.0-18.0) g/dl Hct 34.8 L (42.0-52.0) % Plt Count 127 L (130-400) K/uL BMP 07/05/22 06:54 Sodium 138 Potassium 3.6 Chloride 105 Carbon Dioxide 26 BUN 8 Creatinine 0.87 Glucose 99 Calcium 8.3 L
[2022-07-06] MEDS ORDERED: GABAPENTIN 600 MG TAB PO SCH (04:00)
[2022-07-06 06:23] LABS: Calcium 9.1 mg/dl (8.6-10.3); Creatinine Clr Calc Pharmacy 89.9 ml/min; Est GFR (Non-African American) 94.1 ml/min; Magnesium 1.9 mg/dl (1.7-2.4); Potassium 3.8 mmol/L (3.5-5.1)
[2022-07-06] MEDS: FOLIC ACID 1 MG TAB PO SCH (09:38)
[2022-07-06] MEDS: levETIRAcetam 500 MG TAB PO SCH (09:39)
[2022-07-06] MEDS: MULTIVITAMIN TAB PO SCH (09:39)
[2022-07-06] MEDS: THIAMINE HCL 100 MG TAB PO SCH (09:40)
--- NOTE | 2022-07-06 12:09 | Hospitalist Progress Note ---
Date of Service July 06, 2022 Assessment & Plan (1) Breakthrough seizure: Plan: Breakthrough seizure Likely multifactorial: Alcohol withdrawal, noncompliant with Keppra --CT head:No acute intracranial hemorrhage, midline shift, or mass effect. --MRI:No acute intracranial abnormality. Continue Keppra 1 g twice daily Continue seizure precautions Had outpatient EEG Follows with [facility] neurology as outpatient Appreciate neurology input Needs follow-up with neurology upon discharge Medication compliance counseled Advised not to drive until cleared by his neurologist on follow-up visit Alcohol withdrawal Continue gabapentin protocol Continue thiamine, folic acid Not interested in rehab placement Hypokalemia Hypomagnesemia Replete electrolytes as needed Forehead laceration S/P sutures Continue wound care Prediabetes HbA1c 5.8 Chronic diastolic heart failure No signs of volume overload Monitor DVT Px: SCDs Re: Traumatic frontal laceration Code Status Full code Disposition Home Admission and Anticipated Discharge Date Admission Date: July 04, 2022 Subjective Patient is seen and examined at bedside Offers no complaints No seizure activity overnight Denies any anxiety, tremor, shakiness Currently not interested in drug rehab placement Also denies any chest pain, dyspnea, dizziness, nausea, abdominal pain Plan to discharge home today Review of Systems Review of Systems: All systems reviewed & are unremarkable except as noted in Subjective Physical Exam Physical Exam: Physical Exam: Vitals signs as noted above General Appearance:Moderately built and nourished, no apparent distress Head: normocephalic, +traumatic, +L forehead sutures Eyes: normal inspection, EOMI Neck: supple, Trachea midline Respiratory/Chest: Normal breath sounds, CTA, No accessory muscle use Cardiovascular: S1, S2, No murmur Abdomen/GI:Soft, Non tender, Bowel sounds present Extremities/Musculoskeletal:normal inspection, no edema Neurologic/Psych:AAOX3, grossly no focal neurological deficits Skin: normal color, warm Results & Data Results & Data Vital Signs (Past 12 Hours) Vital Signs Temp Pulse Resp BP Pulse Ox O2 Del Method 07/06/22 07:40 36.8 C 80 16 157/90 H 89 L Room Air 07/06/22 03:25 36.7 C 71 18 148/83 H 96 Room Air Laboratory Results [facility] 07/06/22 05:21 Sodium 135 L Potassium 3.8 Chloride 102 Carbon Dioxide 25 BUN 13 Creatinine 0.93 Glucose 105 H Calcium 9.1
--- NOTE | 2022-07-06 12:19 | Discharge Summary ---
Date of Service July 06, 2022 Admission HPI Per Admitting Provider History obtained from patient and records. Medical history significant for chronic diastolic heart failure, seizure disorder, alcohol abuse. Last confinement 2014 for C. difficile colitis. Patient has had seizures since 2019 attributed to alcohol use cessation and low magnesium and potassium. Patient started on Keppra. First and last visit to [facility] neurologist was January 2020. Normal outpatient EEG January 2020. No acute intracranial abnormality on outpatient MRI February 2020. Patient seen at the ER once ago for breakthrough seizure. 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 Subsequent head trauma/frontal laceration secondary to fall. Patient denies chest pain, SOB. Compliant with medications. Last EtOH intake was 2 days ago. Patient brought to the ER for evaluation. IV Keppra administered at the ER. Frontal laceration sutured. Medical History as above Surgical History : None Family History : Alcoholism Personal/Social history : Non-smoker, alcohol abuse, senior commercial loan officer Admission Exam Per Admitting Provider GENERAL: Slightly uncomfortable, pleasant, tremulous, no respiratory distress SKIN: Normal color, warm HEENT: Alopecia, marva over frontal laceration with dried blood, pink palpebral conjunctivae, no ptosis, dry buccal mucosa NECK : Supple, no tenderness CHEST : CTA, no tenderness HEART : RRR, no obvious murmurs ABDOMEN: Some distention, nontender EXTREMITIES : No LE swelling/tenderness, no other conspicuous deformities noted NEUROLOGIC : Coherent, no facial asymmetry, tremulous, no other gross focality Principal Diagnosis Breakthrough seizure Alcohol withdrawal Hypokalemia Hypomagnesemia Forehead laceration Discharge Data Allergies Allergy/AdvReac Type Severity Reaction Status Date / Time No Known Allergies Allergy Verified 01/11/20 03:19 Consultations 07/04/22 02:50 ED Decision to Admit Stat 07/04/22 04:37 Consult Neurology Routine Procedures Performed Laboratory Results WBC 2.97 K/ul (4.8-10.8) L 07/05/22 06:54 RBC 3.46 M/uL (4.70-6.10) L 07/05/22 06:54 Hgb 12.1 g/dl (14.0-18.0) L 07/05/22 06:54 Hct 34.8 % (42.0-52.0) L 07/05/22 06:54 MCV 100.6 fL (80.0-100.0) H 07/05/22 06:54 MCH 35.0 pg (25.0-34.0) H 07/05/22 06:54 MCHC 34.8 g/dL (32.0-36.0) 07/05/22 06:54 RDW Std Deviation 41.6 fL (36.4-46.3) 07/05/22 06:54 RDW Coeff of Jan 11.4 % (11.5-14.5) L 07/05/22 06:54 Plt Count 127 K/uL (130-400) L 07/05/22 06:54 MPV 9.8 fL (9.4-12.4) 07/05/22 06:54 Immature Gran % (Auto) 0.2 % 07/04/22 08:15 Neut % (Auto) 63.2 % 07/04/22 08:15 Lymph % (Auto) 20.2 % 07/04/22 08:15 [place] % (Auto) 13.9 % 07/04/22 08:15 Eos % (Auto) 2.0 % 07/04/22 08:15 Baso % (Auto) 0.5 % 07/04/22 08:15 Neut # (Auto) 2.78 K/uL (1.40-6.50) 07/04/22 08:15 Lymph # (Auto) 0.89 K/uL (1.2-3.4) L 07/04/22 08:15 [place] # (Auto) 0.61 K/uL (0.11-0.59) H 07/04/22 08:15 Eos # (Auto) 0.09 K/uL (0-0.50) 07/04/22 08:15 Baso # (Auto) 0.02 K/uL (0-0.2) 07/04/22 08:15 Immature Gran # (Auto) 0.01 K/uL (0.01-0.20) 07/04/22 08:15 Sodium 135 mmol/L (136-145) L 07/06/22 05:21 Potassium 3.8 mmol/L (3.5-5.1) 07/06/22 05:21 Chloride 102 mmol/L (98-107) 07/06/22 05:21 Carbon Dioxide 25 mmol/L (21-32) 07/06/22 05:21 Anion Gap 8 (3-11) 07/06/22 05:21 BUN 13 mg/dl (6-23) 07/06/22 05:21 Creatinine 0.93 mg/dl (0.6-1.4) 07/06/22 05:21 Est Cr Clr Drug Dosing 89.9 ml/min 07/06/22 05:21 Est GFR ( Amer) 109.0 ml/min 07/06/22 05:21 Est GFR (Non-Af Amer) 94.1 ml/min 07/06/22 05:21 BUN/Creatinine Ratio 14.0 (10-20) 07/06/22 05:21 Glucose 105 mg/dl (70-99(Fasting)) H 07/06/22 05:21 Estimat Average Glucose 120 mg/dl 07/04/22 08:15 Hemoglobin A1c 5.8 % (4.5-5.6) H 07/04/22 08:15 Lactate 1.7 mmol/L (0.4-2.0) 07/04/22 01:13 Calcium 9.1 mg/dl (8.6-10.3) 07/06/22 05:21 Magnesium 1.9 mg/dl (1.7-2.4) 07/06/22 05:21 Total Bilirubin 0.6 mg/dl (0.2-1.0) 07/03/22 22:19 AST 35 U/L (13-39) 07/03/22 22:19 ALT 31 U/L (7-52) 07/03/22 22:19 Alkaline Phosphatase 38 U/L (34-104) 07/03/22 22:19 Total Protein 7.7 gm/dl (6.0-8.3) 07/03/22 22:19 Albumin 4.3 gm/dl (3.4-5.0) 07/03/22 22:19 Globulin 3.4 gm/dl (2.5-4.0) 07/03/22 22:19 Albumin/Globulin Ratio 1.3 (0.9-2) 07/03/22 22:19 Urine Color Yellow 07/04/22 01:58 Urine Appearance Clear (Clear) 07/04/22 01:58 Urine pH 8.0 (4.5-7.5) H 07/04/22 01:58 Ur Specific [place] 1.018 (1.000-1.030) 07/04/22 01:58 Urine Protein 1+ (Negative) H 07/04/22 01:58 Urine Glucose (UA) Negative (Negative) 07/04/22 01:58 Urine Ketones 2+ (Negative) H 07/04/22 01:58 Urine Blood Negative (Negative) 07/04/22 01:58 Urine Nitrite Negative (Negative) 07/04/22 01:58 Urine Bilirubin Negative (Negative) 07/04/22 01:58 Urine Urobilinogen Negative (Negative) 07/04/22 01:58 Ur Leukocyte Esterase Negative (Negative) 07/04/22 01:58 Urine WBC (Auto) 1-5 /hpf (0-5) 07/04/22 01:58 Urine RBC (Auto) 0-4 /hpf (0-4) 07/04/22 01:58 U Hyaline Cast (Auto) 0 /lpf (0-5) 07/04/22 01:58 U Epithel Cells (Auto) 20-30 /lpf (0-5) H 07/04/22 01:58 Urine Bacteria (Auto) Negative (Negative) 07/04/22 01:58 Urine Opiates Screen Neg (Neg) 07/04/22 01:58 Ur Methadone, Qual Neg (Neg) 07/04/22 01:58 Urine Barbiturates Neg (Neg) 07/04/22 01:58 Ur Phencyclidine (PCP) Neg (Neg) 07/04/22 01:58 U Amphetamin/Meth Scrn Neg (Neg) 07/04/22 01:58 MDMA (Ecstasy) Screen Neg (Neg) 07/04/22 01:58 U Benzodiazepines Scrn Neg (Neg) 07/04/22 01:58 Ur Cocaine Metabolite Neg (Neg) 07/04/22 01:58 U Marijuana (THC) Screen Neg (Neg) 07/04/22 01:58 Ethyl Alcohol mg/dL < 10.0 mg/dl (<10.0) 07/04/22 01:13 SARS-CoV-2, RNA, NAAT NEGATIVE (NEGATIVE) 07/04/22 01:[address] 07/03/22 23:05 Exam(s): CT HEAD Without Contrast EXAM: CT Head Without Intravenous Contrast CLINICAL HISTORY: Reason for exam: seizure CHI. TECHNIQUE: Axial computed tomography images of the head/brain without intravenous contrast. CTDI is 37.62 mGy and DLP is 614.27 mGy-cm. Automated exposure control was utilized for the study. A dose lowering technique was utilized adhering to the principles of ALARA. COMPARISON: No relevant prior studies available. FINDINGS: No acute intracranial hemorrhage. No midline shift or mass effect. The territorial aparicio-white matter differentiation is maintained throughout. The ventricles and sulci are commensurate with age. The visualized orbits appear grossly unremarkable. The calvarium is intact. Forehead laceration. The visualized paranasal sinuses and mastoid air cells are grossly clear. IMPRESSION: No acute intracranial hemorrhage, midline shift, or mass effect. Forehead laceration. Electronically signed by: Ruddy Shields MD 07/04/22 00:14 AM Brain MRI 07/04/22 16:46 Brain MRI WITH AND WITHOUT CONTRAST HISTORY: Seizure TECHNIQUE: Multiplanar multisequence MRI of the brain was performed both before and after the intravenous administration of contrast. COMPARISON STUDY: Head CT 07/03/2022. FINDINGS: There are no areas of restricted diffusion to suggest acute infarction. The midline structures are intact. The paranasal sinuses are clear. The mastoid air cells are clear. The ventricles and sulci are within normal limits for age. There is no mass, hematoma, midline shift. The major vascular flow-voids at the skull base are well maintained. Postcontrast sequences show no areas of abnormal enhancement. The temporal lobes are symmetric. No evidence for aparicio matter heterotopia. There is mild mucosal thickening within the nasal sinuses. Mild motion artifact on the postcontrast sequences results in suboptimal evaluation. IMPRESSION: No acute intracranial abnormality. ACT 112: Negative or not required by law. Electronically signed by: Wyatt Loja M.D. 07/05/2022 8:15 AM Ordered Studies 07/03/22 23:05 CT head/brain wo con Stat 07/04/22 16:46 MR brain seizure wo/w con Routine Hospital Course (1) Breakthrough seizure: Breakthrough seizure Likely multifactorial: Alcohol withdrawal, noncompliant with Keppra --CT head:No acute intracranial hemorrhage, midline shift, or mass effect. --MRI:No acute intracranial abnormality. Continue Keppra 1 g twice daily Continue seizure precautions Had outpatient EEG Follows with [facility] neurology as outpatient Appreciate neurology input Needs follow-up with neurology upon discharge Medication compliance counseled Advised not to drive until cleared by his neurologist on follow-up visit Alcohol withdrawal Continue gabapentin protocol Continue thiamine, folic acid Not interested in rehab placement Hypokalemia Hypomagnesemia Replete electrolytes as needed Forehead laceration S/P sutures Continue wound care Prediabetes HbA1c 5.8 Chronic diastolic heart failure No signs of volume overload Monitor DVT Px: SCDs Re: Traumatic frontal laceration Code Status Full code Disposition Home Total Time Total Time Spent Total Time Spent (In Minutes): 54 minutes Discharge Plan Discharge Items Patient Disposition: Home - Self-Care Reason For Visit: ETOH WITHDRAWAL SZ Discharge Diagnosis: Breakthrough seizure Alcohol withdrawal Hypokalemia Hypomagnesemia Forehead laceration Activity: Per Instructions section Exercise/Sports: Gradually increase as tolerated Driving/Machine Use: No driving permitted until cleared by your neurologist Non-emergency contact: Primary Care Provider and Neurologist Call non-emergency contact if: you have any medication questions, your symptoms worsen, your pain is concerning for you, you have a fever, your wound has increased redness, your wound has increased drainage and your wound pain has increased Follow-up/Referrals: [facility] [Primary Care Provider] - Diet: Heart Healthy Addtl Attending Provider Instructions: Follow-up with your primary care physician in 1 week as advised Follow-up with your neurologist Dr. Hima Hercules in 3 to 4 weeks as advised --- No driving permitted until cleared by your neurologist. --Take your medications regularly as advised. --Quit drinking alcohol as advised Seek immediate medical attention if your symptoms reoccur or worsen Please take all medications as instructed on discharge list below. Please call if you have any questions or problems. You can reach a [facility] hospitalist on duty at [facility] 24 hours a day by calling [phone] Pending Studies at Discharge: No Stand-Alone Forms: My [facility], Smoking Cessation Medications and DC Order Prescriptions: New gabapentin 600 mg Tablet 600 mg PO DAILY Qty: 3 0RF thiamine HCl (vitamin B1) 100 mg Tablet 100 mg PO QAM Qty: 30 0RF folic acid 1 mg Tablet 1 mg PO QAM Qty: 30 0RF Changed levetiracetam [Keppra] 500 mg tablet 1,000 mg PO BID 30 Days Qty: 120 0RF Discharge Orders: Discharge Order (Routine); Ordered 07/06/22 Ordered By: Gabriele Krause Admission Data Admit Date/Time: 07/04/22 04:33 Attending Provider: Gabriele Krause Admit Provider: Trell Garcia Primary Care Provider: [facility] Other Providers: Trell Garcia ; Hima Hercules
[2022-07-07] MEDS ORDERED: GABAPENTIN 600 MG TAB PO SCH (16:00)
== END 2022-07-06 13:50 | disposition home or self-care (01) | DRG 101 ==
LOC: ED 21:57 → EDINP 07-04 04:33 → INTOOBSV 07-04 04:33 → 2S 07-04 15:50